=== PATIENT | female | born 1950 | race Caucasian/White ===

== ENCOUNTER 2017-01-10 08:40 | Outpatient (CLI) | payer MEDICARE ==
[2017-01-10 09:13] LABS: Anion Gap 18 mmol/L; BUN/Creatinine Ratio 25.71; Blood Urea Nitrogen 18 mg/dL (7-17); Calcium 9.3 mg/dL (8.4-10.2); Carbon Dioxide 24 mmol/L (22-30); Chloride 98.8 mmol/L (98-107); Glucose 196 mg/dL (65-100); Potassium 4.3 mmol/L (3.6-5.0); Sodium 136 mmol/L (137-145)
--- NOTE | 2017-01-10 10:43 | XRay Report ---
ROUTINE CHEST, TWO VIEWS: SOB. PA and lateral views demonstrate the heart and mediastinal contour to be of normal size and shape. The lungs are clear and fully expanded and the soft tissues and bony structures are normal. IMPRESSION: Normal study.
--- NOTE | 2017-01-10 10:46 | Nuclear Medicine Report ---
Ventilation/perfusion scan: SOB. Upright posterior ventilation imaging demonstrates normal distribution of radionuclide. On the washout images however a small amount of activity remains throughout both lungs. Perfusion imaging in multiple projections demonstrates a slight degree of heterogenicity of activity in the superior right lung but no segmental or subsegmental focal deficiencies are identified. The remainder of the lungs bilaterally appear homogeneously perfused. Impressions: The findings are of low suspicion for pulmonary embolus.
--- NOTE | 2017-01-11 07:59 | Vascular Lab Report ---
LOWER EXTREMITY VENOUS DUPLEX: REASON FOR EXAM: Shortness of breath, Pain of the lower extremities. COMMENTS ON THE RIGHT: All veins visualized are freely compressible without evidence of internal echogenicity. Flow is spontaneous and phasic throughout. COMMENTS ON THE LEFT: All veins visualized are freely compressible without evidence of internal echogenicity. Flow is spontaneous and phasic throughout. IMPRESSION: No evidence of acute or chronic deep venous thrombosis in either lower extremity.
== END 2017-01-10 08:41 | disposition home or self-care (01) ==
LOC: VAS 08:40
PROVIDERS: ATTEND Internal Medicine
DX: R06.02 Shortness of breath (principal); M79.661 Pain in right lower leg; M79.662 Pain in left lower leg; R25.2 Cramp and spasm
CPT/HCPCS: 36415; 71020; 78582; 80048; 93970; A9540; A9558